=== PATIENT | female | born 1985 | race American Indian/Alaskan Native ===

== ENCOUNTER → 2018-11-08 | Day surgery (SDC) | payer OTHER ==
[2018-10-24 10:00] VITALS: BMI 19.0
== END | disposition home or self-care (01) ==
LOC: C.SDS 05:54
PROVIDERS: ATTEND Surgery
DX: Z53.8 Procedure and treatment not carried out for other reasons (principal); D17.9 Benign lipomatous neoplasm, unspecified

== ENCOUNTER 2018-11-21 10:13 | Day surgery (SDC) | payer OTHER ==
[2018-10-24 10:00] VITALS: BMI 19.0
[2018-11-21 11:29] VITALS: O2SAT 100
[2018-11-21] MEDS ORDERED: Bupivacaine 0.25% 20 ML INJ IJ ONE (12:06)
[2018-11-21] MEDS ORDERED: Lidocaine/Epinephrine 1% 1:100000 10 ML IJ ONE ×2 (12:06→12:56)
[2018-11-21] MEDS ORDERED: Lidocaine Hydrochloride 0 ML INJ ONE (12:06)
[2018-11-21] MEDS ORDERED: ceFAZolin 1 gm in NS 1 GM/100 ML BAG IVPB ONE (12:07)
[2018-11-21] MEDS ORDERED: Midazolam 2 MG/2 ML VIAL ONE (12:27)
[2018-11-21] MEDS ORDERED: Propofol 10 mg/ml Inj (20 ML) ONE ×2 (12:27→12:40)
--- NOTE | 2018-11-21 13:12 | PCM.SURG1 ---
Surgeon's Initial Post Op Note - Surgeon's Notes Surgeon: Dr. Karie Moulton Ged Preparation Teacher: Dr. Ferrara Type of Anesthesia: IV Sedation, Local Pre-Operative Diagnosis: Soft tissue mass of right sided chest wall Operative Findings: see operative note Post-Operative Diagnosis: same Operation Performed: removal of right chest wall soft tissue mass Specimen/Specimens Removed: lipoma Estimated Blood Loss: EBL {In ML}: 5 Blood Products Given: N/A Drains Used: No Drains Post-Op Condition: Good Date of Surgery/Procedure: 11/21/18 Time of Surgery/Procedure: 13:12
[2018-11-21] MEDS ORDERED: HYDROmorphone 0.5 mg/0.5 ml ISec IVP PRN (13:19)
[2018-11-21 13:27] VITALS: PULSE 82
[2018-11-21 13:46] VITALS: RESP 12; TEMP 97.2
[2018-11-21] MEDS ORDERED: Acetaminophen-Codeine 300/30 mg Tab PO PRN (14:00)
[2018-11-21 14:17] VITALS: BP 123/69
--- NOTE | 2018-11-28 09:30 | PCM.OP ---
Operative Report - Operative Report Date of Surgery/Procedure: 11/21/18 Time of Surgery/Procedure: 12:30 Surgeon: Karie Moulton MD Installer Apprentice: Matthias Camargo DO (PGY 1 resident) Anesthesia/Sedation: See main Pre-Operative Diagnosis: See main Post-Operative Diagnosis: See main Indication for Surgery: See main Operative Findings: See main Procedure/Operation Description: ANESTHESIA: MACl; 1% lidocaine with epinephrine+ 0.25% margarine local 50/50 mix local anesthesia PREOPERATIVE DIAGNOSIS: Soft tissue mass right chest wall, 7cm x 6xcm POSTOPERATIVE DIAGNOSIS: Right chest wall Lipoma, GROSS FINDINGS: A 6x5cm mass of adipose tissue most likely representing a lipoma was found in the patients right anterior chest wall. No muscle involvement. Indication: The patient is a 33 year old female with history of a lump on her right anterior chest wall below breast line noted several years ago. It has slowly grown in size become bothersome with wearing clothing and wishes to have this removed for symptoms and also for cosmetic reasons. Details of HPI as documented in patients chart. All potential risks, benefits, and complications of the procedure were discussed with the patient, and informed consent was obtained prior to the operation. PROCEDURE PERFORMED: Excision of lipomatous soft tissue mass of right chest wall. DETAILS OF OPERATION: Patient was taken to operating room and placed supine on operating room table. MAC sedation performed by anesthesia. Arms placed in neutral position on arms boards with elbows slightly flexed and fingers pointed toward head of bed. A safety strap was then placed across the thighs. 2 gram of Ancef was given within 30 minutes prior to incision. SCDs were placed for thromboprophylaxis. No hair removal was necessary. Right chest wall prepped and draped in sterile fashion. A time out was performed prior to incision. The borders of the soft tissue mass in right chest wall marked with marker. Next, approximately 10cc of 1% lidocaine mixed with 0.25% Marcaine were used to locally anesthetize the skin directly over the mass. A #10 blade scalpel was utilized to make an approximately 2.5cm transverse incision over the soft tissue mass. Upon incising the skin and the subcutaneous tissue readily and there was the fatty tissue mass. The lipomatous mass was circumferentially dissected using a combination of blunt, sharp dissection off underlying muscle fascia which was not involved of penetrated. The specimen was delivered out and specimen measured 6x5cm in dimension, sent off to pathology. 10mL of local anesthesia was then injected into deeper tissue and anterior fascia. The wound was then copiously irrigated with saline, and hemostasis was obtained. The wound was then closed. 3-0 vicryl interrupted sutured were placed in deeper subcutaneous region x3 to obliterate cavity and finally skin closed using running 4-0 Monocryl. 10mL of local anesthesia was again given into the skin around the incision. Dermabond was applied to the skin. Patient was taken to recovery in stable condition. I was present for the entirety of the operation. Sponge needle, and instrument counts were correct. Estimated Blood Loss: 5mL Complications: none Specimen: lipomatous mass, chest wall Discharge & Condition: See main
== END 2018-11-21 14:18 | disposition home or self-care (01) ==
LOC: C.SDS 10:13
PROVIDERS: ATTEND Surgery
DX: D17.1 Benign lipomatous neoplasm of skin and subcutaneous tissue of trunk (principal); F41.9 Anxiety disorder, unspecified; Z79.899 Other long term (current) drug therapy
CPT/HCPCS: 21552; 88304; J0690; J2250; J2704; J3010